=== PATIENT | female | born 1990 | race Caucasian/White ===

== ENCOUNTER 2016-11-22 13:15 | Emergency (ER) | payer OTHER ==
[~2016-11-22] VITALS: Wt 71.0 kg
[~2016-11-22 13:15] MED LIST: ALBU8.5H3 IH; CALC600T PO; DOXY100T20 PO; FERR240T9 PO; METR500T PO; PERCOCET PO; PREN-39 PO
[2016-11-22] MEDS ORDERED: ONDANSETRON 4 MG INJ IV STA (15:03)
[2016-11-22] MEDS ORDERED: morphine 4 MG/ML VIAL IV STA (15:03)
[2016-11-22] MEDS ORDERED: SOD CHLORIDE 0.9% 1,000 ML IV STA (15:03)
--- NOTE | 2016-11-22 16:36 | RADRPT ---
PROCEDURE: US Pelvis. CLINICAL INDICATION: Pelvic pain. TECHNIQUE: The pelvis was evaluated with transabdominal and transvaginal sonography in the axial a nd sagittal planes. COMPARISON: No prior study is available for comparison. FINDINGS: Uterus: 8.9 x 4.4 x 4.8 cm. Endometrium: 13.8 mm. Right ovary: 3.2 x 2.6 x 2.6 cm. Left ovary: 2.3 x 1.3 x 1.2 cm. Uterine masses: None. Ovarian masses: There is a 2.4 cm in maximal diameter right ovarian hemorrhagic cyst. The ovaries a re Color Doppler and pulsed Doppler sonography demonstrate normal flow to otherwise normal. Other pelvic masses: None. Free fluid: A small amount of free fluid is present in the cul-de-sac. IMPRESSION: 1. Right ovarian hemorrhagic cyst measuring 2.4 cm in maximal dimension. No further evaluation req uired. 2. Small amount of free fluid in the cul-de-sac, likely physiologic. 3. Otherwise normal pelvic ultrasound. RPTAT: QQ .Armando Medina MD, Date Time Electronically viewed and signed by .Armando Medina MD, on 11/22/2016 16:36 .R/
[2016-11-22 16:39] LABS: ADD SCAN DIFF NO
[2016-11-22 16:41] LABS: BASOPHIL # 0.1 10^3/ul (0.0-0.1); BASOPHILS % 0.3 % (0.0-2.0); EOSINOPHILS # 0.1 10^3/ul (0.0-0.5); EOSINOPHILS % 0.4 % (0.0-7.0); HEMATOCRIT 39.6 % (37.0-47.0); HEMOGLOBIN 13.1 g/dl (12.0-16.0); LYMPHOCYTES # 2.9 10^3/ul (0.8-2.9); MEAN CORPUSCULAR HGB CONC 33.1 g/dl (32.0-37.0); MEAN CORPUSCULAR VOLUME 90.8 fl (82.0-101.0); MEAN PLATELET VOLUME 9.8 fl (7.4-10.4); MONOCYTE # 0.8 10^3/ul (0.3-0.9); MONOCYTES % 5.6 % (0.0-11.0); NEUTROPHIL # 10.5 10^3/ul (1.6-7.5); NEUTROPHILS % 73.3 % (39.0-77.0); PLATELET COUNT 296 10^3/UL (140-415); RED BLOOD COUNT 4.36 10^6/ul (4.20-5.40); RED CELL DISTRIBUTION WIDTH 12.2 % (11.5-14.5); WHITE BLOOD COUNT 14.4 10^3/ul (4.8-10.8)
[2016-11-22 16:50] LABS: ALBUMIN 4.7 g/dl (3.3-4.9); POTASSIUM 4.1 mmol/L (3.5-5.1)
[2016-11-22 16:52] LABS: CREATININE 0.72 mg/dl (0.44-1.00)
[2016-11-22 16:53] LABS: ADD UMIC NO; URINE BILIRUBIN (Dip) NEGATIVE (NEGATIVE); URINE BLOOD (Dip) NEGATIVE (NEGATIVE); URINE COLOR LT. YELLOW (YELLOW); URINE GLUCOSE (Dip) NEGATIVE (NEGATIVE); URINE KETONES (Dip) NEGATIVE (NEGATIVE); URINE LEUKOCYTE ESTERASE (Dip) NEGATIVE (NEGATIVE); URINE NITRITE (Dip) NEGATIVE (NEGATIVE); URINE TOTAL PROTEIN (Dip) NEGATIVE (NEGATIVE); URINE UROBILINOGEN (Dip) 0.2 E.U./dL (0.1-1.0)
[2016-11-22 16:53] LABS: ALBUMIN/GLOBULIN RATIO 1.42; BILIRUBIN,INDIRECT 0.4 mg/dl (0-1.1); BILIRUBIN,TOTAL 0.4 mg/dl (0.2-1.3); CALCIUM 9.4 mg/dl (8.4-10.2)
--- NOTE | 2016-11-22 17:39 | RADRPT ---
PROCEDURE: CT Abdomen and Pelvis without contrast. CLINICAL INDICATION: Abdominal pain TECHNIQUE: CT of the abdomen and pelvis was performed on a multi-detector scanner without IV contr ast. Coronal and sagittal images were reformatted from the axial data set. One or more of the foll owing dose reduction techniques were used: automated exposure control, adjustment of the mA and/or kV according to patient size, use of iterative reconstruction technique. CTDI = 10.34 mGy. DLP = 52 4.52 mGy-cm. COMPARISON: Ultrasound, 11/22/2016 FINDINGS: CT abdomen: The lung bases are clear. The heart size is normal, without pericardial effusion. Liver, gallbladd er, biliary tree, pancreas, spleen, adrenal glands and kidneys are unremarkable. There is no urolit hiasis or obstructive uropathy. The stomach is grossly unremarkable. The aorta is of normal caliber. There is no retroperitoneal lymphadenopathy. The matt hepatis reg ion is clear. Fat-containing umbilical hernia is noted without incarceration. CT pelvis: No bowel obstruction, free intraperitoneal air or abscess is identified. Scattered colonic divertic hi are seen without diverticulitis. The appendix is well visualized and normal. There is no colit is. Urinary bladder, uterus and adnexa are grossly unremarkable. Trace amount of pelvic free fluid is noted. No pelvic mass or lymphadenopathy is seen. The surrounding osseous structures are unremarkable. No osteolytic or osteoblastic lesion is detect ed. IMPRESSION: 1. Small fat-containing umbilical hernia is noted without incarceration. 2. Scattered colonic diverticula are seen without diverticulitis. 3. Trace amount of pelvic free fluid is noted, likely physiologic. 4. No mass, lymphadenopathy, or focal acute inflammatory process is identified. RPTAT: AA .Edwin Rubalcava MD, Date Time Electronically viewed and signed by .Edwin Rubalcava MD, on 11/22/2016 17:39 .R/
[2016-11-22] MEDS ORDERED: ONDA4TAB8 PO (18:08)
[2016-11-22] MEDS ORDERED: HYDR-906 PO (18:08)
[2016-11-22 18:33] VITALS: BP 128/68; PULSE 74; RESP 16; TEMP 98
--- NOTE | 2016-11-22 18:58 | ERD ---
ER Documentation Chief Complaint Date/Time DATE: 11/22/16 TIME: 18:54 Chief Complaint ABD PAIN WITH N/V HPI This is a 26-year-old female presents to the ER with left-sided lower abdominal pain that started 2 days ago. Abdominal pain radiates into her left flank. Patient believes that this is cramping. She also denies of nausea and vomiting today. Vomiting is nonbilious nonbloody. She does not have any diarrhea. Patient normally gets her menstruation twice a month and her last normal menstrual period was November 08. Patient is waiting to see a specialist for this problem. Patient denies any urinary dysuria however is having urinary frequency. She denies any fevers at home, however she does have a fever here in the ER. ROS 12 point review of systems was done, all negative except per HPI. Medications Home Meds Active Scripts Ondansetron Hcl* (Zofran*) 4 Mg Tablet, 4 MG PO Q6H for NAUSEA AND/OR VOMITING, #30 TAB Prov:MANUEL EMERSON 11/22/16 Hydrocodone/Acetaminophen ([employer] 5-325 Tablet) 1 Each Tablet, 1 TAB PO Q6H Y for PAIN, #20 TAB Prov:MANUEL EMERSON 11/22/16 Metronidazole* (Flagyl*) 500 Mg Tablet, 500 MG PO BID for 14 Days, TAB Prov:WILLIAM KHANNA PA-C 03/22/16 Doxycycline Hyclate* (Doxycycline Hyclate*) 100 Mg Tablet.dr, 100 MG PO BID for 14 Days, TAB Prov:WILLIAM KHANNA PA-C 03/22/16 Oxycodone Hcl/Acetaminophen (Percocet) 1 Tab Tab, 1 TAB PO Q4H Y for PAIN LEVEL 4-6, #24 TAB Prov:ZAHRA GEORGES MD 02/22/15 Reported Medications Ferrous Gluconate (Iron) 1 Tab Tablet, 1 TAB PO TID 02/15/15 Calcium Carbonate (Oyster Shell Calcium) 600 Mg Tablet, 600 MG PO DAILY 02/10/15 Vits W-Ca,Fe,Fa(<1MG) ( Vitamins) 1 Tab Tablet, 1 TAB PO 12/20/14 Albuterol Sulfate* (Proair HFA*) 8.5 Gm Hfa.aer.ad, 8.5 GM IH Y 12/17/11 Allergies Allergies: Coded Allergies: Penicillins (Verified Allergy, Severe, 02/20/15) shortness of breath and rashes PMhx/Soc History of Surgery: Yes (CS X 1, LEEP, TONSILLECTOMY) Anesthesia Reaction: No Hx Neurological Disorder: No Hx Respiratory Disorders: Yes (ASTHMA) Hx Cardiac Disorders: No Hx Psychiatric Problems: Yes (DEPRESSION) Hx Miscellaneous Medical Probl: No Hx Alcohol Use: No Hx Substance Use: No Hx Tobacco Use: No Physical Exam Vitals Vital Signs Date Time Temp Pulse Resp B/P Pulse Ox O2 Delivery O2 Flow Rate FiO2 11/22/16 18:33 98.0 74 16 128/68 99 11/22/16 13:17 100.0 93 18 140/71 99 Physical Exam GENERAL: The patient is well developed and appropriate for usual state of health , in no apparent distress. HEENT: Atraumatic. CHEST: Clear to auscultation bilaterally. There are no rales, wheezes or rhonchi. HEART: Regular rate and rhythm. No murmurs, clicks, rubs or gallops. ABDOMEN: Soft, nontender and nondistended. Good bowel sounds. No rebound or guarding. No gross peritonitis. No gross organomegaly or masses. No Ruffin sign or McBurney point tenderness. left pelvic pain on palpation. NEURO: Alert and oriented. SKIN: The skin is warm and dry. Result Diagram: 11/22/16 1600 11/22/16 1600 Results 24 hrs Laboratory Tests Test 11/22/16 16:00 11/22/16 16:35 White Blood Count 14.410^3/ul Red Blood Count 4.3610^6/ul Hemoglobin 13.1g/dl Hematocrit 39.6% Mean Corpuscular Volume 90.8fl Mean Corpuscular Hemoglobin 30.0pg Mean Corpuscular Hemoglobin Concent 33.1g/dl Red Cell Distribution Width 12.2% Platelet Count 85933^3/UL Mean Platelet Volume 9.8fl Neutrophils % 73.3% Lymphocytes % 20.0% Monocytes % 5.6% Eosinophils % 0.4% Basophils % 0.3% Nucleated Red Blood Cells % 0.0/100WBC Neutrophils # 10.510^3/ul Lymphocytes # 2.910^3/ul Monocytes # 0.810^3/ul Eosinophils # 0.110^3/ul Basophils # 0.110^3/ul Nucleated Red Blood Cells # 0.010^3/ul Sodium Level 139mmol/L Potassium Level 4.1mmol/L Chloride Level 101mmol/L Carbon Dioxide Level 23mmol/L Anion Gap 19 Blood Urea Nitrogen 13mg/dl Creatinine 0.72mg/dl Glucose Level 88mg/dl Calcium Level 9.4mg/dl Total Bilirubin 0.4mg/dl Direct Bilirubin 0.00mg/dl Indirect Bilirubin 0.4mg/dl Aspartate Amino Transf (AST/SGOT) 17IU/L Alanine Aminotransferase (ALT/SGPT) 22IU/L Alkaline Phosphatase 87IU/L Total Protein 8.0g/dl Albumin 4.7g/dl Globulin 3.30g/dl Albumin/Globulin Ratio 1.42 Lipase 88U/L Urine Color LT. YELLOW Urine Clarity CLEAR Urine pH 6.5 Urine Specific Moody 1.020 Urine Ketones NEGATIVE Urine Nitrite NEGATIVE Urine Bilirubin NEGATIVE Urine Urobilinogen 0.2 E.U./dL Urine Leukocyte Esterase NEGATIVE Urine Hemoglobin NEGATIVE Urine Glucose NEGATIVE% Urine Total Protein NEGATIVE Current Medications Medications (Trade) Dose Ordered Sig/Wilma Route PRN Reason Start Time Stop Time Status Last Admin Dose Admin Sodium Chloride (NS) 1,000 ml @ 1,000 mls/hr Q1H STAT IV 11/22/16 15:03 11/22/16 16:02 DC 11/22/16 16:06 Morphine Sulfate (morphine) 4 mg ONCE STAT IV 11/22/16 15:03 11/22/16 15:05 DC 11/22/16 16:06 Ondansetron HCl (Zofran Inj) 4 mg ONCE STAT IV 11/22/16 15:03 11/22/16 15:05 DC 11/22/16 16:06 Procedures/MDM Differential diagnosis includes but is not limited to; diverticulitis, appendicitis, tubo-ovarian abscess, ovarian cyst, ovarian torsion, PID, UTI, pyelonephritis, nephrolithiasis. This is a 26-year-old female presents to the ER with left-sided lower pelvic pain. At this time there is no evidence of acute abdominal emergency. Patient's physical examination is benign. Patient did have a cyst on the right side however this does not correspond to her pain. Patient did have nausea and vomiting and a slight fever. This may be viral in etiology. Patient will be treated for her nausea and vomiting and for her pain. Patient is to follow-up with her primary care doctor within 1-2 days or return to ER sooner if symptoms worsen. My medical decision making was shared with the patient she understands and agrees with plan. Departure Diagnosis: Primary Impression: Abdominal pain Condition: Stable Patient Instructions: Abdominal Pain Additional Instructions: Call your primary care doctor TOMORROW for an appointment during the next 1-2 days.See the doctor sooner or return here if your condition worsens before your appointment time. MANUEL EMERSON Nov 22, 2016 18:58
== END 2016-11-22 18:34 | disposition home or self-care (01) ==
LOC: FTE 13:15
DX: R10.2 Pelvic and perineal pain (principal); R11.2 Nausea with vomiting, unspecified; J45.909 Unspecified asthma, uncomplicated
CPT/HCPCS: 36415; 74176; 76830; 76856; 80053; 81003; 83690; 85025; 96374; 96375; J2270; J2405; J7030; Z7502

== ENCOUNTER 2017-05-27 10:01 | Emergency (ER) | payer OTHER ==
[~2017-05-27] VITALS: Ht 152.4 cm; Wt 77.5 kg
[~2017-05-27 10:01] MED LIST changes: +HYDR-906 PO; +ONDA4TAB8 PO
[2017-05-27 10:05] VITALS: Ht 152.4 cm; Wt 77.5 kg
[2017-05-27] MEDS ORDERED: PROM6.25 PO (10:45)
[2017-05-27] MEDS ORDERED: NAPR-260 PO (10:46)
--- NOTE | 2017-05-27 10:55 | ERD ---
ER Documentation Chief Complaint Date/Time DATE: 05/27/17 TIME: 10:52 Chief Complaint CAME IN VIA INTAKE DUE TO FLU LIKE SYMPTOMS WITH HX OF ASTHMA HPI 27-year-old female complaining of productive cough, body aches, sore throat and runny nose 2 days. Patient states she has a history of asthma and feels that her symptoms are causing an asthma exacerbation. Patient has been using inhaler with alleviation. Patient took ibuprofen 4 hours prior to evaluation. Denies sick contacts. Denies abdominal pain. Denies vomiting. Denies fever. ROS All systems reviewed and are negative except as per history of present illness. Medications Home Meds Active Scripts Naproxen* (Naprosyn*) 500 Mg Tablet, 500 MG PO BID Y for PAIN AND/OR INFLAMMATION, #30 TAB Prov:WILLIAM KHANNA PA-C 05/27/17 Promethazine Hcl* (Phenergan* Liq) 6.25 Mg/5 Ml Syrup, 6.25 MG PO Q6H Y for COUGH, #160 ML Prov:WILLIAM KHANNA PA-C 05/27/17 Ondansetron Hcl* (Zofran*) 4 Mg Tablet, 4 MG PO Q6H for NAUSEA AND/OR VOMITING, #30 TAB Prov:MANUEL EMERSON 11/22/16 Hydrocodone/Acetaminophen ([place] 5-325 Tablet) 1 Each Tablet, 1 TAB PO Q6H Y for PAIN, #20 TAB Prov:MANUEL EMERSON 11/22/16 Metronidazole* (Flagyl*) 500 Mg Tablet, 500 MG PO BID for 14 Days, TAB Prov:WILLIAM KHANNA PA-C 03/22/16 Doxycycline Hyclate* (Doxycycline Hyclate*) 100 Mg Tablet.dr, 100 MG PO BID for 14 Days, TAB Prov:WILLIAM KHANNA PA-C 03/22/16 Oxycodone Hcl/Acetaminophen (Percocet) 1 Tab Tab, 1 TAB PO Q4H Y for PAIN LEVEL 4-6, #24 TAB Prov:ZAHRA GEORGES MD 02/22/15 Reported Medications Ferrous Gluconate (Iron) 1 Tab Tablet, 1 TAB PO TID 02/15/15 Calcium Carbonate (Oyster Shell Calcium) 600 Mg Tablet, 600 MG PO DAILY 02/10/15 Vits W-Ca,Fe,Fa(<1MG) ( Vitamins) 1 Tab Tablet, 1 TAB PO 12/20/14 Albuterol Sulfate* (Proair HFA*) 8.5 Gm Hfa.aer.ad, 8.5 GM IH Y 12/17/11 Allergies Allergies: Coded Allergies: Penicillins (Verified Allergy, Severe, 02/20/15) shortness of breath and rashes PMhx/Soc History of Surgery: Yes (CS X 1, LEEP, TONSILLECTOMY) Anesthesia Reaction: No Hx Neurological Disorder: No Hx Respiratory Disorders: Yes (ASTHMA) Hx Cardiac Disorders: No Hx Psychiatric Problems: Yes (DEPRESSION) Hx Miscellaneous Medical Probl: No Hx Alcohol Use: No Hx Substance Use: No Hx Tobacco Use: No Physical Exam Vitals Vital Signs Date Time Temp Pulse Resp B/P Pulse Ox O2 Delivery O2 Flow Rate FiO2 05/27/17 10:05 98.1 92 18 126/67 100 Physical Exam GENERAL: The patient is well-appearing, well-nourished, in no acute distress HEENT: Atraumatic. Conjunctivae are pink. Pupils equal, round, and reactive to light. There is no scleral icterus. Tympanic membranes clear bilaterally. Oropharynx erythematous with no exudate NECK: C-spine is soft and supple. There is no meningismus. There is no cervical lymphadenopathy. CHEST: Clear to auscultation bilaterally. There are no rales, wheezes or rhonchi. HEART: Regular rate and rhythm. No murmurs, clicks, rubs or gallops. No S3 or S4. Results 24 hrs Current Medications Medications (Trade) Dose Ordered Sig/Wilma Route PRN Reason Start Time Stop Time Status Last Admin Dose Admin Acetaminophen (Tylenol Tab) 650 mg ONCE ONCE PO 05/27/17 11:00 05/27/17 11:01 Procedures/MDM MDM: 27-year-old female coming in complaining of URI symptoms. I have low suspicion for pneumonia as patient's oxygen saturations 100% on room air and patient is afebrile. Patient's breath sounds are within normal limits and did not have rhonchi heard on auscultation. I have low suspicion for bacterial HEENT infection. Patient's exam is not concerning and appears to be viral in nature. Vital signs are stable and patient is nontoxic-appearing. I have low suspicion for meningitis or sepsis as patient exam is not concerning. Patient will be recommended to continue taking supportive medication and I do not feel antibiotics are indicated at today's visit. Patient is told to maintain adequate rest and hydration. Patient is discharged with strict ER precautions and recommended to return to the ER symptoms change or worsen. Patient will follow up with primary care within 1-2 days for further evaluation. All questions answered at discharge Departure Diagnosis: Primary Impression: Upper respiratory infection Condition: Stable Patient Instructions: Uri, Viral, No Abx (Adult) Additional Instructions: FOLLOW UP WITH YOUR PRIMARY CARE PHYSICIAN TOMORROW.Return to this facility if you are not improving as expected. WILLIAM KHANNA PA-C May 27, 2017 10:55
[2017-05-27] MEDS ORDERED: ACETAMINOPHEN 325 MG TAB PO ONE (11:00)
== END 2017-05-27 11:12 | disposition home or self-care (01) ==
LOC: FTE 10:01
DX: J06.9 Acute upper respiratory infection, unspecified (principal); J45.909 Unspecified asthma, uncomplicated
CPT/HCPCS: Z7502; Z7610; 99283

== ENCOUNTER 2017-09-02 12:18 | Emergency (ER) | END 2017-09-02 15:06 | disposition home or self-care (01) ==